=== PATIENT | female | born 1970 ===

== ENCOUNTER → 2021-11-29 | Day surgery (SDC) | payer OTHER ==
[~2021-11-29] VITALS: Ht 160 cm; Wt 70.3 kg
[2021-11-29 10:13] LABS: HCG (URINE) SCREEN NEGATIVE (NEGATIVE)
[2021-11-29 10:28] LABS: BASOPHIL 0.9 % (0-2); EOSINOPHIL 3.1 % (0-5); HCT 34.2 % (42.0-52.0); HGB 11.4 g/dl (13.2-18.0); LYMPHOCYTE 32.1 % (15-48); MCH 30.2 pg (25.0-31.0); MCHC 33.3 g/dL (32.0-36.0); MCV 90.5 fL (78.0-100.0); MONOCYTE 5.9 % (0-12); MPV 9.2 fL (6.0-9.5); NEUTROPHIL 57.7 % (41-80); NRBC 0; PLT 402 K/uL (150-400); RBC 3.78 M/uL (4.70-6.00); WBC 5.8 K/uL (4.0-10.5)
[2021-11-29 10:37] LABS: INR 1.14 (0.9-1.2)
[2021-11-29 10:38] LABS: PTT 38.4 SECONDS (24.4-34.7)
== END | disposition home or self-care (01) ==
LOC: FAS 09:39 → EDSEX 09:39 → FAS 10:45
PROVIDERS: Oral & Maxillofacial Surgery
DX: K04.7 Periapical abscess without sinus (principal); K08.89 Other specified disorders of teeth and supporting structures; Z88.1 Allergy status to other antibiotic agents; Z88.5 Allergy status to narcotic agent; Z20.822 Contact with and (suspected) exposure to COVID-19
CPT/HCPCS: 36415; 71045; 84703; 85025; 85610; 85730; 93005; J1100; J1885; J2250; J2405; J2704; J7120